=== PATIENT | female | born 1960 | race Hispanic/Latino ===

== ENCOUNTER 2017-10-11 15:21 | Emergency (ER) | payer BC, MEDICARE ==
[2017-10-11 15:22] VITALS: BMI 23.1
[2017-10-11 15:42] VITALS: BP 140/84; PULSE 68; RESP 18; O2SAT 95
[2017-10-11 15:45] VITALS: TEMP 97.9
--- NOTE | 2017-10-11 16:10 | ED PDOC ---
Arrival/HPI - General Chief Complaint: Trauma Time Seen by Provider: 10/11/17 15:35 Historian: Patient - History of Present Illness Narrative History of Present Illness (Text): 10/11/17 16:07 57yo female present with complaint of dizziness. States she accidentally "bump" her right sided forehead against her bathroom door this morning. sustained very small superficial abrasion to the area. She admits to pain to the area. States she came to ED for the dizziness. Though triage states nausea, she denies nausea , focal weakness, visual changes, any other complaint. Past Medical History - Provider Review Nursing Documentation Reviewed: Yes - Infectious Disease Hx of Infectious Diseases: None - Tetanus Immunization Tetanus Immunization: Unknown - Reproductive Currently : No - Past Medical History Past Medical History: No Previous - Cardiac Hx Cardiac Disorders: No - Pulmonary Hx Respiratory Disorders: No - Neurological Hx Neurological Disorder: No - HEENT Hx HEENT Disorder: No - Renal Hx Renal Disorder: No - Endocrine/Metabolic Hx Endocrine Disorders: No - Hematological/Oncological Hx Blood Disorders: No - Integumentary Hx Dermatological Disorder: No - Musculoskeletal/Rheumatological Hx Arthritis: Yes Hx Herniated Disk: Yes Hx Spinal Stenosis: Yes Other/Comment: bursitis - Gastrointestinal Hx Gastroesophageal Reflux: Yes - Genitourinary/Gynecological Hx Genitourinary Disorders: No - Psychiatric Hx Psychophysiologic Disorder: No Hx Anxiety: No Hx Bipolar Disorder: No Hx Depression: No Hx Emotional Abuse: No Hx Hallucinations: No Hx Panic Disorder: No Hx Post Traumatic Stress Disorder: No Hx Psychosis: No Hx Physical Abuse: No Hx Schizophrenia: No Hx Sexual Abuse: No Hx Substance Use: No - Past Surgical History Past Surgical History: Non-Contributing - Surgical History Hx Orthopedic Surgery: Yes (right arm) Hx Tubal Ligation: Yes - Anesthesia Hx Anesthesia: Yes Hx Anesthesia Reactions: No Hx Malignant Hyperthermia: No - Suicidal Assessment Feels Threatened In Home Enviroment: No Family/Social History - Physician Review Nursing Documentation Reviewed: Yes Family/Social History: Unknown Family HX Smoking Status: Current Some Days Smoker Hx Alcohol Use: Yes Frequency of alcohol use: Socially Hx Substance Use: No Hx Substance Use Treatment: No Allergies/Home Meds Allergies/Adverse Reactions: Allergies environmental Allergy (Uncoded 10/11/17 15:42) CONGESTION Home Medications: Home Meds Medication Instructions Recorded Confirmed Tizanidine HCl [Zanaflex] 4 mg PO DAILY 06/01/15 10/11/17 Cetirizine HCl [Zyrtec Allergy] 10 mg PO DAILY 10/11/17 10/11/17 Montelukast [Singulair] 10 mg PO DAILY 10/11/17 10/11/17 Omeprazole Magnesium [Prilosec Otc] 20 mg PO DAILY 10/11/17 10/11/17 Review of Systems - Physician Review All systems were reviewed & negative as marked: Yes - Review of Systems Constitutional: Normal Eyes: Normal ENT: Normal Respiratory: Normal Cardiovascular: Normal Gastrointestinal: Normal Genitourinary Female: Normal Musculoskeletal: Normal Skin: Normal Neurological: Headache, Dizziness. absent: Focal Weakness, Speech Changes Endocrine: Normal Hemo/Lymphatic: Normal Psychiatric: Normal Physical Exam Vital Signs Reviewed: Yes Vital Signs Temp Pulse Resp BP Pulse Ox 10/11/17 15:44 97.9 F 10/11/17 15:40 68 18 140/84 95 Temperature: Afebrile Blood Pressure: Normal Pulse: Regular Respiratory Rate: Normal Appearance: Positive for: Well-Appearing, Non-Toxic, Comfortable Pain Distress: None Mental Status: Positive for: Alert and Oriented X 3 - Systems Exam Head: Present: Normocephalic, Abrasion (Very small superficial abrasion noted to right sided forehead with very minimal underlaying hematoma. TTP.). No: Atraumatic Pupils: Present: PERRL Extroacular Muscles: Present: EOMI Conjunctiva: Present: Normal Mouth: Present: Moist Mucous Membranes Neck: Present: Normal Range of Motion Respiratory/Chest: Present: Clear to Auscultation, Good Air Exchange. No: Respiratory Distress, Accessory Muscle Use Cardiovascular: Present: Regular Rate and Rhythm, Normal S1, S2. No: Murmurs Abdomen: Present: Normal Bowel Sounds. No: Tenderness, Distention, Peritoneal Signs Back: Present: Normal Inspection Upper Extremity: Present: Normal Inspection. No: Cyanosis, Edema Lower Extremity: Present: Normal Inspection. No: Edema Neurological: Present: GCS=15, CN II-XII Intact, Speech Normal Skin: Present: Warm, Dry, Normal Color. No: Rashes Psychiatric: Present: Alert, Oriented x 3, Normal Insight, Normal Concentration Medical Decision Making ED Course and Treatment: 10/11/17 16:29 Pt was neurologically intact in ED. Abrasion was cleansed with peroxide and bacitracine applied. Head CT - negative Result was DW the pt. Referred to her PMD. TRT ED for any new or worsening symptoms. Advised to apply ice to area and take Tylenol 650mg as needed for pain. - RAD Interpretation Radiology Orders: 10/11/17 15:43 HEAD W/O CONTRAST [CT] Stat - Medication Orders Current Medication Orders: Discontinued Medications Acetaminophen (Tylenol 325mg Tab) 650 mg PO STAT STA Stop: 10/11/17 15:44 Last Admin: 10/11/17 16:05 Dose: 650 mg MAR Pain/Vitals Document 10/11/17 16:05 (Rec: 10/11/17 16:07 [facility]-[id number]) Pain Reassessment Is This A Pain ReAssessment? Yes Pain Scale Used Pain Scale Used Numeric Location Left, Right or Bilateral Right Pain Location Body Health And Safety Trainer Description Intermittent Intensity 2 Scale Used Numeric Disposition/Present on Arrival - Present on Arrival Any Indicators Present on Arrival: No History of DVT/PE: No History of Uncontrolled Diabetes: No Urinary Catheter: No History of Decub. Ulcer: No History Surgical Site Infection Following: None - Disposition Have Diagnosis and Disposition been Completed?: Yes Diagnosis: Head injury Disposition: HOME/ ROUTINE Disposition Time: 16:35 Patient Plan: Discharge Condition: STABLE Discharge Instructions (ExitCare): Head Injury (ED) Additional Instructions: Follow up with your doctor Return to ED for any new symptoms Referrals: Quentin Garza MD [Primary Care Provider] - Follow up with primary Forms: [employer] (Yoruba)
--- NOTE | 2017-10-11 16:22 | CT ---
PROCEDURE: CT HEAD WITHOUT CONTRAST. HISTORY: dizziness s/p trauma COMPARISON: None available. TECHNIQUE: Axial computed tomography images were obtained through the head/brain without intravenous contrast. Radiation dose: Total exam DLP = 678 mGy-cm. This CT exam was performed using one or more of the following dose reduction techniques: Automated exposure control, adjustment of the mA and/or kV according to patient size, and/or use of iterative reconstruction technique. FINDINGS: HEMORRHAGE: No intracranial hemorrhage. BRAIN: No mass effect or edema. No atrophy or chronic microvascular ischemic changes. VENTRICLES: Unremarkable. No hydrocephalus. CALVARIUM: Unremarkable. PARANASAL SINUSES: Unremarkable as visualized. No significant inflammatory changes. MASTOID AIR CELLS: Unremarkable as visualized. No inflammatory changes. OTHER FINDINGS: None. IMPRESSION: No acute findings
== END 2017-10-11 16:43 | disposition home or self-care (01) ==
LOC: ED 15:21
DX: S09.90XA Unspecified injury of head, initial encounter (principal); W22.8XXA Striking against or struck by other objects, initial encounter